=== PATIENT | female | born 1975 | race Two or more races ===

== ENCOUNTER 2024-04-24 16:07 | Emergency (ER) | payer MEDICAID, SELFPAY ==
[2024-04-24 16:08] VITALS: BMI 23.1
[2024-04-24 16:12] VITALS: BP 148/91; PULSE 64; RESP 19; TEMP 36.9; O2SAT 98
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
[2024-04-24] MEDS: IBUPROFEN TAB 600 MG TABLET PO (17:11)
== END 2024-04-24 18:20 | disposition home or self-care (01) ==
PROVIDERS: Emergency Provider Emergency Medicine; PCP Nurse Practitioner Family
DX: M54.2 Cervicalgia (principal); M25.512 Pain in left shoulder; V89.9XXA Person injured in unspecified vehicle accident, initial encounter
CPT/HCPCS: 72040; 73030; 99283; A9270

== ENCOUNTER → 2024-06-07 | Outpatient (CLI) | payer MEDICAID, SELFPAY ==
--- NOTE | 2024-06-07 08:45 | XR_ITS ---
Examination: Screening digital mammography, bilateral Computer aided detection 3-D breast Tomosynthesis, bilateral Date and time of exam: June 07, 2024 0853 hours Compared to mammograms dating to March 24, 2018 Indication: Screening Technique: Nonmagnified MLO, CC views of the breasts to been obtained, reconstructed from 3-D Tomosynthesis images. R2 computer aided detection program utilized for evaluation of suspicious masses and/or abnormal calcifications. 3-D Tomosynthesis images obtained. Findings: The breasts are heterogeneously dense, which may obscure small masses Benign calcifications. No interval suspicious masses Impression: BI-RADS category II: Benign Findings. Recommend 1 year follow-up mammogram.
== END | disposition home or self-care (01) ==
LOC: CDIM 08:35
PROVIDERS: Referring Provider Registered Nurse Community Health; Visit Provider Registered Nurse Community Health
DX: Z12.31 Encounter for screening mammogram for malignant neoplasm of breast (principal); R92.323 Mammographic fibroglandular density, bilateral breasts; R92.1 Mammographic calcification found on diagnostic imaging of breast
CPT/HCPCS: 77063; 77067

== ENCOUNTER 2024-08-11 07:00 | Day surgery (SDC) | payer MEDICAID, SELFPAY ==
[2024-08-09 11:42] LABS: HCG Qualitative,Urine Negative
[2024-08-10 12:31] VITALS: BMI 22.6
[2024-08-11] VITALS (9 sets, daily range): BP systolic 122–138; BP diastolic 67–85; PULSE 53–84; RESP 12–19; TEMP 36.2–36.7; O2SAT 100; BMI 23.0
[2024-08-11] MEDS: SODIUM CHLORIDE 0.9% 500 ML 500 ML 100 ML IV (07:43)
[2024-08-11] MEDS: DiphenhydrAMINE INJ 50 MG/ML VIAL 25 MG IV (07:45)
[2024-08-11] MEDS: MIDAZOLAM INJ 1 MG/ML VIAL 2 ML (ASD USE ONLY) 2 MG IV (07:48)
[2024-08-11] MEDS: fentaNYL CIT INJ 50 mCg/ML AMP 2ML (ASD USE ONLY) IV (07:50)
== END 2024-08-11 08:53 | disposition home or self-care (01) ==
PROVIDERS: PCP Registered Nurse Community Health; Referring Provider Surgery; Visit Provider Surgery
PROC: 0DBE8ZX Excision of Large Intestine, Via Natural or Artificial Opening Endoscopic, Diagnostic (ICD-10-PCS; CPT 45380; principal; 2024-08-11 08:00)
DX: Z12.11 Encounter for screening for malignant neoplasm of colon (principal); D12.0 Benign neoplasm of cecum; K64.0 First degree hemorrhoids; E03.9 Hypothyroidism, unspecified; Z79.890 Hormone replacement therapy
CPT/HCPCS: 45380; 81025; A4649; J1200; J2250; J3010; J7040

== ENCOUNTER → 2025-04-21 | Outpatient (CLI) | payer MEDICAID, SELFPAY ==
--- NOTE | 2025-04-21 15:00 | XR_ITS ---
EXAMINATION: Thyroid sonography complete TECHNIQUE: Grayscale sonographic images thyroid lobes Date and time: April 21, 2025, 1515 hours INDICATIONS: Palpable mass in the neck 1 month FINDINGS: Right thyroid 4.2 cm Left thyroid 4.1 cm No cystic or solid mass IMPRESSION: Negative for thyromegaly Negative for thyroid nodules
[2025-04-21 17:49] LABS: Follicle Stimulating Hormone 144.89 mIU/mL (See Note)
[2025-04-21 17:51] LABS: Free T4 (Free Thyroxine) 1.37 ng/dL (0.89-1.76); Thyroid Stimulating Hormone 1.64 uIU/mL (0.55-4.78)
[2025-05-03 07:01] LABS: DHEA Sulfate* 166 mcg/dL (19-231); Estradiol, Ultrasensitive* 21 pg/mL; Luteinizing Hormone* 58.8 mIU/mL; Prolactin* 7.2 ng/mL; Testosterone,Total* 18 ng/dL (2-45); Thyroid Peroxidase Antibodies* 772 IU/mL (<9)
== END | disposition home or self-care (01) ==
LOC: CDIM 14:51 → COPL 15:51
PROVIDERS: PCP Registered Nurse Community Health; Referring Provider Registered Nurse Community Health; Visit Provider Radiology Diagnostic Radiology
DX: E03.9 Hypothyroidism, unspecified (principal); N95.1 Menopausal and female climacteric states
CPT/HCPCS: 36415; 76536; 82627; 82670; 83001; 83002; 84146; 84403; 84439; 84443; 86376